=== PATIENT | female | born 1960 | race Two or more races ===

== ENCOUNTER 2019-07-17 18:49 | Emergency (ER) | payer SELFPAY ==
[2019-07-17 19:08] VITALS: BMI 23.4
--- NOTE | 2019-07-17 19:31 | PDOC ---
History of Present Illness - General Chief Complaint: Injury Stated Complaint: FALL Time Seen by Provider: 07/17/19 19:27 History Source: Patient Exam Limitations: No Limitations - History of Present Illness Initial Comments: 07/17/19 19:29 Zuleima Hawley is a 58F with no significant PMH presenting with mechanical fall with hand injury and facial laceration. Patient reports 1.5 hours [employer] was walking in the dark of a parking lot and fell face forward and hit her head on the ground. Denies LOC, tongue biting, loss of urinary/fecal continence. Denies prodromal symptoms, fever, chest pain, SOB. Denies changes to vision or hearing, but her glasses were broken when she fell and her vision is poor without them. Able to ambulate without issue. Currently says she has pain in her hand and on her forehead. No other PMH. PSH hysterectomy. Denies taking any medications daily, not on AC. Past History - Past Medical History Allergies/Adverse Reactions: Allergies Allergy/AdvReac Type Severity Reaction Status Date / Time No Known Allergies Allergy Verified 07/17/19 19:57 COPD: No CHF: No - Surgical History Appendectomy: Yes - Psycho Social/Smoking Cessation Hx Smoking History: Never smoked Hx Alcohol Use: No Drug/Substance Use Hx: No Review of Systems - Review of Systems Able to Perform ROS?: Yes Constitutional: No: Symptoms Reported HEENTM: No: Recent change in vision Respiratory: No: Symptoms reported Cardiac (ROS): No: Symptoms Reported ABD/GI: No: Symptoms Reported : No: Symptoms Reported Musculoskeletal: No: Symptoms Reported Integumentary: Yes: Other (cut on face). No: Bruising Neurological: No: Symptoms reported Endocrine: No: Symptoms Reported Hematologic/Lymphatic: No: Symptoms Reported All Other Systems: Reviewed and Negative *Physical Exam - Vital Signs Last Vital Signs Temp Pulse Resp BP Pulse Ox 97.5 F L 68 18 139/84 98 07/17/19 19:03 07/17/19 19:03 07/17/19 19:03 07/17/19 19:03 07/17/19 19:03 - Physical Exam General Appearance: Yes: Nourished, Appropriately Dressed. No: Apparent Distress HEENT: positive: EOMI, LUCY, Normal Voice, Symmetrical, Pharynx Normal (no broken teeth or mucusal lacerations), Hearing Decreased, Other (no septal hematoma, has 2in hematoma to forehead, no scalp bleeding or skull fracture). negative: Scleral Icterus (R), Scleral Icterus (L), Sinus Tenderness Neck: positive: Supple. negative: Tender, Lymphadenopathy (R), Lymphadenopathy (L) Respiratory/Chest: positive: Lungs Clear, Normal Breath Sounds. negative: Chest Tender, Respiratory Distress, Accessory Muscle Use, Crackles, Rales, Rhonchi, Stridor, Wheezing Cardiovascular: positive: Regular Rhythm, Regular Rate. negative: Murmur Gastrointestinal/Abdominal: positive: Normal Bowel Sounds, Flat, Soft. negative : Tender, Organomegaly, Pulsatile Mass, Guarding, Rebound Musculoskeletal: positive: Normal Inspection. negative: Decreased Range of Motion, Vertebral Tenderness Extremity: positive: Normal Capillary Refill, Normal Range of Motion, Tender (L hand), Pelvis Stable, Other (L hand: neurovascular intact, tendons intact, sensation intact to LT, 5/5 motor, 5th digit tender to palpation. RLE: mild bruising to R knee, full ROM, non-tender, neurovascular intact, 5/5 strength, ambulates without issue). negative: Normal Inspection Integumentary: positive: Normal Color, Dry, Warm Neurologic: positive: arbor end mainspring former II-XII NML intact, Fully Oriented, Alert, Normal Mood/ Affect, Normal Response Medical Decision Making - Medical Decision Making 07/17/19 19:29 Zuleima Hawley is a 58F with no significant PMH presenting with mechanical fall with hand injury and facial laceration. Patient has a laceration to her face that needs repair, and has a 2in hematoma noted to her face and pain with flexion of her 5th digit on her left hand. Will repair facial laceration with sutures. Ordering L hand XR as well as CT head for evaluation of skull fx vs. ICH. 07/17/19 21:41 CT head shows no intracranial pathology, has hematoma to forehead. Hand XR shows 5th proximal metacarpal fracture with possible carpal bone fracture. Splinting with volar splint and ulnar gutter, ortho f/u. 07/17/19 22:50 Repaired facial lacerations with 3x 6-0 vicryl and 2x6-0 vicryl, patient tolerated procedure well. Wrist splinted with volar and ulnar gutter splint to stabilize wrist and 5th digit. Patient stable for f/u with orthopedics. Discharge - Discharge Information Problems reviewed: Yes Clinical Impression/Diagnosis: Finger fracture, left Qualifiers: Encounter type: initial encounter Finger: little finger Fracture type: closed Phalanx: proximal Fracture alignment: nondisplaced Qualified Code(s): S62.647A - Nondisplaced fracture of proximal phalanx of left little finger, initial encounter for closed fracture Face lacerations Qualifiers: Encounter type: initial encounter Qualified Code(s): S01.81XA - Laceration without foreign body of other part of head, initial encounter Fall Qualifiers: Encounter type: initial encounter Qualified Code(s): W19.XXXA - Unspecified fall, initial encounter Condition: Stable Disposition: HOME - Admission No - Follow up/Referral Referrals: Jacobo Mars MD [Staff Physician] - Adalid Anderson MD [Staff Physician] - Gomez Yo DO [Staff Physician] - - Patient Discharge Instructions Patient Printed Discharge Instructions: DI for Laceration Repair, DI for Finger Fracture Additional Instructions: Today you were evaluated for a fall. Your CT scan does not show any bleeding or broken skull bones. Your hand x-ray shows a broken little finger, which we have splinted. Please follow-up with an orthopedic surgeon for further care back in [place]; we have provided a referral to one if you do not have one. At home, keep the splint covered when you shower, and take Motrin or Tylenol as needed for pain control. Please see your primary doctor in the next 3 days for further care. If you experience worsening pain in your hand, numbness/tingling, headache, blurry vision, bleeding/pus from your nose, nausea, vomiting, or any other new or concerning symptoms, please return to the emergency room. - Post Discharge Activity
[2019-07-17] MEDS: ACETAMINOPHEN 325 MG TABLET (FP) PO ONE ×2 (19:57→20:01)
[2019-07-17] MEDS ORDERED: ACETAMINOPHEN 325 MG TABLET (FP) ONE (19:59)
[2019-07-17] MEDS ORDERED: DIPHTH,PERTUSS(ACELL),TET 0.5 ML DISP.SYRIN IM ONE ×2 (20:11→22:02)
--- NOTE | 2019-07-17 20:25 | PDOC ---
Documentation entered by Bienvenido Branham SCRIBE, acting as scribe for Claire Hutton DO. Claire Hutton DO: This documentation has been prepared by the Yonas edmondson Daniel, SCRIBE, under my direction and personally reviewed by me in its entirety. I confirm that the documentation accurately reflects all work, treatment, procedures, and medical decision making performed by me. Attending Attestation - Resident Resident Name: Deepak Colón - ED Attending Attestation I have performed the following: I have examined & evaluated the patient, The case was reviewed & discussed with the resident, I agree w/resident's findings & plan, Exceptions are as noted - HPI HPI: 07/17/19 19:51 The patient is a 58 year old female with no past medical history here today for evaluation s/p fall. The patient reports that she was getting into her car when she slipped and fell forward. She denies any loss of consciousness and remembers the whole event. She currently complains of a laceration to her nose, some burning pain in her left pinky finger which is worse with movement, left knee pain, and right sided forehead pain. She believes that her last tetanus was 06/24 but is unsure. Patient denies headache, lightheadedness. Denies fever, chills. Denies chest pain, shortness of breath. Denies nausea, vomiting, diarrhea, abdominal pain. Allergies: NKA - Physicial Exam PE: 07/17/19 20:48 No septal hematoma no hemotympanum No facial tenderness other than nasal bridge Right forehead hematoma Constitutional: Awake, alert, oriented. No acute distress. Head: +right forehead hematoma. Normocephalic. Atraumatic Eyes: PERRL. EOMI. Conjunctivae are not pale. ENT: No septal hematoma or hemotympanum. No facial tenderness other than the nasal bridge. Mucous membranes are moist and intact. Posterior pharynx without exudates or erythema. Uvula midline. Neck: Supple. Full ROM. No lymphadenopathy. Cardiovascular: Regular rate. Regular rhythm. S1, S2 regular. Distal pulses are 2+ and symmetric. Pulmonary/Chest: No evidence of respiratory distress. Clear to auscultation bilaterally No wheezing, rales or rhonchi. Abdominal: Soft and non-distended. There is no tenderness. No rebound, guarding or rigidity. No organomegaly. No palpable masses. Good bowel sounds. Back: No C, T, or L spine tenderness. No CVA tenderness. Musculoskeletal: +left hand tenderness left 5th metacarpal with limited range of motion secondary to pain. No edema. No cyanosis. No clubbing. Full range of motion in all extremities. No calf tenderness. Radial/pedal pulses are intact and 2+ bilaterally Skin: +bilateral knee ecchymosis right greater than left. +left knee small abrasion. +small abrasion to left hand with skin flap. +mid bridge nasal 0.5 cm laceration. +1 cm laceration to the left side of the nasal bridge. Skin is warm and dry. No petechiae. No purpura. Neurological: Alert and oriented to person, place, and time. Cranial nerves II -XII are grossly intact. Normal speech. Strength is grossly symmetric. No sensory deficits. Psychiatric: Good eye contact. Normal interaction, affect and behavior. - Medical Decision Making 07/17/19 20:22 I, Dr. Claire Hutton, DO, attest that this document has been prepared under my direction and personally reviewed by me in its entirety. I further attest, that it accurately reflects all work, treatment, procedures and medical decision -making performed by me. a/p: 58yo female with a mechanical fall outside while walking to her car and landing hitting her face and her L hand -pt also with ecchymosis to R knee -abrasion/skin tear to L hand -ttp along the 5th metacarpal - neurovasc intact, brisk cap refill -2 nasal lac -no septal hematoma, no hemotypanium, neuro intact, no focal deficits -no facial deformities, mild nasal bone ttp -small frontal hematoma to forehead -will send for head ct, xray hand, boostrix, lac repair -no anticoags or antiplts -no loc -neuro intact 07/17/19 21:[address] neg fracture to 5th prox phalange just above the MCP joint also poss navicular fx will splint will need ortho follow up Discharge - Discharge Information Problems reviewed: Yes Clinical Impression/Diagnosis: Finger fracture, left Qualifiers: Encounter type: initial encounter Finger: little finger Fracture type: closed Phalanx: proximal Fracture alignment: nondisplaced Qualified Code(s): S62.647A - Nondisplaced fracture of proximal phalanx of left little finger, initial encounter for closed fracture Face lacerations Qualifiers: Encounter type: initial encounter Qualified Code(s): S01.81XA - Laceration without foreign body of other part of head, initial encounter Fall Qualifiers: Encounter type: initial encounter Qualified Code(s): W19.XXXA - Unspecified fall, initial encounter Condition: Stable Disposition: HOME - Admission No - Follow up/Referral Referrals: Adalid Anderson MD [Staff Physician] - Gomez Yo DO [Staff Physician] - Jacobo Mars MD [Staff Physician] - - Patient Discharge Instructions Patient Printed Discharge Instructions: DI for Laceration Repair, DI for Finger Fracture Additional Instructions: Today you were evaluated for a fall. Your CT scan does not show any bleeding or broken skull bones. Your hand x-ray shows a broken little finger, which we have splinted. Please follow-up with an orthopedic surgeon for further care; we have provided a referral to one if you do not have one. At home, keep the splint covered when you shower, and take Motrin or Tylenol as needed for pain control. Please see your primary doctor in the next 3 days for further care. If you experience worsening pain in your hand, numbness/tingling, headache, blurry vision, nausea, vomiting, or any other new or concerning symptoms, please return to the emergency room. - Post Discharge Activity
[2019-07-17 23:12] VITALS: BP 128/75; PULSE 85; TEMP 97.9
== END 2019-07-17 23:13 | disposition home or self-care (01) ==
LOC: JER 18:49
PROC: 2W3KX1Z Immobilization of Left Finger using Splint (ICD-10-PCS; principal; 2019-07-17)
PROC: 0HQ1XZZ Repair Face Skin, External Approach (ICD-10-PCS; 2019-07-17)
PROC: 3E0234Z Introduction of Serum, Toxoid and Vaccine into Muscle, Percutaneous Approach (ICD-10-PCS; 2019-07-17)
DX: S01.81XA Laceration without foreign body of other part of head, initial encounter (principal); S62.647A Nondisplaced fracture of proximal phalanx of left little finger, initial encounter for closed fracture; W18.39XA Other fall on same level, initial encounter; Y93.89 Activity, other specified; Y92.481 Parking lot as the place of occurrence of the external cause
CPT/HCPCS: 70450-TC; 73130-TC-LT-FY; 90715; 99282-25